=== PATIENT | male | born 1955 | race African-American/Black ===

== ENCOUNTER 2017-02-16 04:00 | Emergency (ER) | payer MEDICARE, BC ==
[~2017-02-16 04:00] MED LIST: AMLO10TA80 PO; CALC667C4 PO; CINA30 PO; CLON0.1T PO; CLOP75TA33 PO; COMADIN; DIPH25CA83 PO; LABE100T PO; LISI2.5T47 PO; MINO2.5T19 PO
== END 2017-02-16 09:30 | disposition left against medical advice (07) ==
LOC: ER 04:00
DX: K92.1 Melena (principal); Z53.21 Procedure and treatment not carried out due to patient leaving prior to being seen by health care provider

== ENCOUNTER 2017-04-13 12:55 | Emergency (ER) | payer MEDICARE, BC ==
[~2017-04-13] VITALS: Ht 182.9 cm; Wt 71.0 kg
[2017-04-13 14:07] LABS: EOSINOPHILS % 3.2 % (0.0-5.0); HEMATOCRIT. 29.9 % (42.0-52.0); HEMOGLOBIN. 9.8 g/dL (14.0-18.0); LYMPHOCYTES % 12.7 % (20.0-50.0); MEAN CORPUSCULAR HEMOGLOBIN 27.6 pg (28.0-32.0); MEAN CORPUSCULAR VOLUME 83.9 fL (80.0-94.0); MEAN PLATELET VOLUME 7.4 fl (7.4-10.4); MONOCYTES % 8.6 % (2.0-8.0); NEUTROPHILS % 73.5 % (40.0-76.0); PLATELET 189 x1000/uL (130-400); RED BLOOD CELL COUNT 3.56 mill/uL (4.7-6.1)
[2017-04-13 14:14] LABS: INR 1.2; PROTHROMBIN TIME 12.1 sec (9.4-11.6)
[2017-04-13 14:24] LABS: CARBON DIOXIDE 35 mEq/L (21-32); CHLORIDE 95 mEq/L (98-107)
[2017-04-13 14:35] VITALS: BP 160/85
== END 2017-04-13 14:48 | disposition home or self-care (01) ==
LOC: ER 12:55
DX: T82.838A Hemorrhage due to vascular prosthetic devices, implants and grafts, initial encounter (principal); I12.0 Hypertensive chronic kidney disease with stage 5 chronic kidney disease or end stage renal disease; N18.6 End stage renal disease; Z99.2 Dependence on renal dialysis
CPT/HCPCS: 36415; 80053; 85025; 85610; 99284

== ENCOUNTER 2018-04-18 21:56 | Inpatient (IN) | payer MEDICARE, BC ==
[~2018-04-18] VITALS: Ht 180.3 cm; Wt 70.3 kg
[~2018-04-18 21:56] MED LIST changes: -LABE100T PO; +LABE100T5 PO
[2018-04-19] MEDS ORDERED: ONDANSETRON HCL 4MG/2ML INJ IV STA (01:38)
[2018-04-19] MEDS ORDERED: MORPHINE SULFATE 10 MG/ML CPJ IV ONE (01:45)
[2018-04-19 02:41] LABS: CHLORIDE 99 mEq/L (98-107)
[2018-04-19 02:48] LABS: ETHANOL BLOOD < 10 mg/dL
[2018-04-19 03:05] LABS: BASOPHILS % 0.3 % (0.0-2.0); EOSINOPHILS % 2.5 % (0.0-5.0); LYMPHOCYTES % 7.3 % (20.0-50.0); MEAN CORPUSCULAR HEMOGLOBIN 25.7 pg (28.0-32.0); MEAN CORPUSCULAR VOLUME 80.3 fL (80.0-94.0); MEAN PLATELET VOLUME 7.9 fl (7.4-10.4); MONOCYTES % 8.8 % (2.0-8.0); NEUTROPHILS % 81.1 % (40.0-76.0); PLATELET 298 x1000/uL (130-400); RED BLOOD CELL COUNT 3.49 mill/uL (4.7-6.1); RED CELL DISTRIBUTION WIDTH 16.6 % (11.6-14.6)
[2018-04-19] MEDS ORDERED: LIDOCAINE HCL 1% 20ML VIAL (Pyxis) INJ ONE (08:24)
[2018-04-19] MEDS ORDERED: SODIUM BICARBONATE 4% (2.4MEQ) 5ML VIAL IV ONE (08:25)
[2018-04-19 08:52] VITALS: BP 124/67
[2018-04-19 08:53] VITALS: BP 124/67
[2018-04-19 12:00] VITALS: BP 117/64
[2018-04-19] MEDS ORDERED: IPRATROPIUM/ALBUTEROL 0.5-3(2.5)MG/3ML NEB INH PRN (12:30)
[2018-04-19] MEDS ORDERED: ACETAMINOPHEN 650MG SUPP PR PRN (12:30)
[2018-04-19] MEDS ORDERED: ONDANSETRON HCL 4MG/2ML INJ IV PRN (12:30)
[2018-04-19] MEDS ORDERED: LORAZEPAM 2MG/ML CPJ IV PRN (12:30)
[2018-04-19] MEDS ORDERED: DIPHENHYDRAMINE 50MG/ML VIAL IV PRN (12:30)
[2018-04-19] MEDS: AMLODIPINE 10MG TABLET PO SCH (15:14)
[2018-04-19] MEDS ORDERED: MINOXIDIL PO SCH (15:15)
[2018-04-19] MEDS: MINOXIDIL 2.5MG TABLET PO SCH (15:46)
[2018-04-19 16:00] VITALS: BP 106/59
[2018-04-19] MEDS ORDERED: CALCIUM ACETATE PO SCH (17:00)
[2018-04-19] MEDS: CALCIUM ACETATE 667MG CAPSULE PO SCH (17:28)
[2018-04-19] MEDS: CINACALCET HCL 60MG TABLET PO SCH (17:28)
[2018-04-19 20:05] VITALS: BP 119/64
[2018-04-19 20:41] LABS: HEMOGLOBIN 10.4 g/dL (14.0-18.0); MEAN CORPUSCULAR HEMOGLOBIN 25.3 pg (28.0-32.0); MEAN CORPUSCULAR VOLUME 80.6 fL (80.0-94.0); PLATELET 310 x1000/uL (130-400); RED CELL DISTRIBUTION WIDTH 16.8 % (11.6-14.6)
[2018-04-19 20:48] LABS: CHLORIDE 101 mEq/L (98-107)
[2018-04-19 20:55] LABS: TOTAL IRON BINDING CAPACITY 215 ug/dL (250-450)
[2018-04-19 21:16] LABS: HEPATITIS B SURFACE ANTIGEN NEGATIVE
[2018-04-19 22:27] LABS: INR 1.1; PROTHROMBIN TIME 11.4 sec (9.1-11.1)
[2018-04-20] VITALS: BP 125/71
[2018-04-20] MEDS ORDERED: DEXT 5%/0.45% NACL 1000ML 1,000 ML IV SCH
[2018-04-20 04:00] VITALS: BP 127/79
[2018-04-20 06:59] LABS: BASOPHILS % 0.7 % (0.0-2.0); EOSINOPHILS % 4.5 % (0.0-5.0); HEMATOCRIT. 27.8 % (42.0-52.0); HEMOGLOBIN. 9.1 g/dL (14.0-18.0); LYMPHOCYTES % 9.5 % (20.0-50.0); MEAN CORPUSCULAR HEMOGLOBIN 26.1 pg (28.0-32.0); MEAN CORPUSCULAR VOLUME 79.5 fL (80.0-94.0); MEAN PLATELET VOLUME 7.9 fl (7.4-10.4); MONOCYTES % 11.4 % (2.0-8.0); NEUTROPHILS % 73.9 % (40.0-76.0); PLATELET 274 x1000/uL (130-400); RED CELL DISTRIBUTION WIDTH 16.8 % (11.6-14.6)
[2018-04-20 07:08] LABS: CHLORIDE 101 mEq/L (98-107)
[2018-04-20] MEDS: CINACALCET HCL 60MG TABLET PO SCH (07:40)
[2018-04-20] MEDS: CALCIUM ACETATE 667MG CAPSULE PO SCH (07:40)
[2018-04-20 07:42] LABS: HDL CHOLESTEROL 58 mg/dL (40-59)
[2018-04-20 07:43] LABS: LDL CHOLESTEROL 70 mg/dL (5-100); PHOSPHORUS 4.2 mg/dL (2.5-4.9)
[2018-04-20 08:00] VITALS: BP 124/71
[2018-04-20] MEDS ORDERED: SODIUM BICARBONATE 4% (2.4MEQ) 5ML VIAL IV ONE (08:38)
[2018-04-20] MEDS ORDERED: LIDOCAINE HCL 1% 20ML VIAL (Pyxis) INJ ONE (08:39)
[2018-04-20] MEDS: MINOXIDIL 2.5MG TABLET PO SCH (10:29)
[2018-04-20] MEDS: AMLODIPINE 10MG TABLET PO SCH (10:29)
[2018-04-20 12:00] VITALS: BP 122/70
[2018-04-20 13:55] VITALS: BP 20/120
[2018-04-20 16:00] VITALS: BP 124/70
[2018-04-20] MEDS ORDERED: CEFTRIAXONE 1 G PREMIX 50 ML IV NR (16:00)
[2018-04-20 17:39] LABS: HEPATITIS A AB IGM EQUIVOCAL (NEGATIVE)
[2018-04-20] MEDS ORDERED: FERROUS SULFATE 325MG TABLET PO SCH (17:40)
== END 2018-04-20 16:45 | disposition home or self-care (01) | DRG 441 ==
LOC: ER 21:56 → 8WST 04-19 05:23 → EDBEDREQ 04-19 05:25 → EDBEDREQTM 04-19 05:25 → ENRESERV 04-19 07:34
PROVIDERS: ADMIT Ophthalmology; ATTEND Ophthalmology
PROC: 5A1D70Z Performance of Urinary Filtration, Intermittent, Less than 6 Hours Per Day (ICD-10-PCS; 2018-04-19)
PROC: 0W9G30Z Drainage of Peritoneal Cavity with Drainage Device, Percutaneous Approach (ICD-10-PCS; principal; 2018-04-20)
DX: K76.9 Liver disease, unspecified (principal); N18.6 End stage renal disease; I50.43 Acute on chronic combined systolic (congestive) and diastolic (congestive) heart failure; R18.8 Other ascites; I13.2 Hypertensive heart and chronic kidney disease with heart failure and with stage 5 chronic kidney disease, or end stage renal disease; N25.81 Secondary hyperparathyroidism of renal origin; Q61.3 Polycystic kidney, unspecified; E03.9 Hypothyroidism, unspecified; E83.39 Other disorders of phosphorus metabolism; F12.90 Cannabis use, unspecified, uncomplicated; F17.200 Nicotine dependence, unspecified, uncomplicated; I73.9 Peripheral vascular disease, unspecified; I87.2 Venous insufficiency (chronic) (peripheral); R73.9 Hyperglycemia, unspecified; D50.9 Iron deficiency anemia, unspecified; H35.039 Hypertensive retinopathy, unspecified eye; K59.00 Constipation, unspecified; L60.0 Ingrowing nail; N28.89 Other specified disorders of kidney and ureter; Z87.01 Personal history of pneumonia (recurrent); Z87.11 Personal history of peptic ulcer disease; Z99.2 Dependence on renal dialysis; Z79.899 Other long term (current) drug therapy
CPT/HCPCS: 36415; 49083; 71045; 74176; 76705; 80061; 82040; 82140; 83036; 83540; 83550; 83605; 83615; 83735; 83986; 84100; 84315; 84439; 84443; 84484; 85027; 86705; 86709; 86803; 87340; 93005; 93306; 93970; 96374; 96375; 99285; G0482; J0696; J1200; J2270; J2405; J3490

== ENCOUNTER 2018-05-03 14:19 | Inpatient (IN) | payer MEDICARE, BC ==
[~2018-05-03] VITALS: Ht 182.9 cm; Wt 60.8 kg
[~2018-05-03 14:19] MED LIST changes: -CLON0.1T PO; -COMADIN; -LABE100T5 PO
[2018-05-03] MEDS ORDERED: SODIUM CHLORIDE 0.9% 500 ML IV ONE (16:15)
[2018-05-03 17:00] LABS: BASOPHILS % 1.7 % (0.0-2.0); EOSINOPHILS % 2.5 % (0.0-5.0); HEMATOCRIT. 30.1 % (42.0-52.0); HEMOGLOBIN. 9.6 g/dL (14.0-18.0); LYMPHOCYTES % 9.2 % (20.0-50.0); MEAN CORPUSCULAR HEMOGLOBIN 25.3 pg (28.0-32.0); MEAN CORPUSCULAR VOLUME 79.5 fL (80.0-94.0); MEAN PLATELET VOLUME 7.8 fl (7.4-10.4); MONOCYTES % 8.6 % (2.0-8.0); PLATELET 240 x1000/uL (130-400); RED BLOOD CELL COUNT 3.78 mill/uL (4.7-6.1); RED CELL DISTRIBUTION WIDTH 18.9 % (11.6-14.6)
[2018-05-03 17:03] LABS: CHLORIDE 97 mEq/L (98-107)
[2018-05-03 17:12] LABS: INR 1.2; PARTIAL THROMBOPLASTIN TIME 30.8 sec (23.4-31.0); PROTHROMBIN TIME 12.2 sec (9.1-11.1)
[2018-05-03] MEDS ORDERED: ALBUMIN HUMAN 12.5G/250ML (5%) IV ONE (18:00)
[2018-05-03] MEDS ORDERED: ONDANSETRON HCL 4MG/2ML INJ IV PRN (19:30)
[2018-05-03] MEDS ORDERED: ACETAMINOPHEN 325MG TABLET PO PRN (19:30)
[2018-05-03] MEDS ORDERED: MAGNESIUM/ALUMINUM HYDROXIDE/SIMETHICONE 30ML UDC PO PRN (19:30)
[2018-05-03] MEDS ORDERED: IPRATROPIUM/ALBUTEROL 0.5-3(2.5)MG/3ML NEB INH PRN (19:30)
[2018-05-03] MEDS ORDERED: LORAZEPAM 1MG TABLET PO PRN (19:30)
[2018-05-03] MEDS ORDERED: CLONIDINE 0.1MG TABLET PO PRN (19:30)
[2018-05-03] MEDS ORDERED: TRAMADOL 50MG TABLET PO PRN (19:30)
[2018-05-03] MEDS ORDERED: DOCUSATE SODIUM 100MG CAPSULE PO PRN (19:30)
[2018-05-03] MEDS ORDERED: GUAIFENESIN 200MG/10ML SUGAR FREE UDC PO PRN (19:30)
[2018-05-03] MEDS ORDERED: NITROGLYCERIN 0.4MG TABLET SL SL PRN (19:30)
[2018-05-03] MEDS ORDERED: DIPHENHYDRAMINE 50MG/ML VIAL IV PRN (19:30)
[2018-05-03] MEDS: ENOXAPARIN 30MG/0.3ML SYR SUBCUT SCH (22:00)
[2018-05-03] MEDS ORDERED: CEFTRIAXONE 1 G PREMIX 50 ML IV SCH (22:00)
[2018-05-04] VITALS (7 sets, daily range): BP systolic 129–149; BP diastolic 72–84
[2018-05-04] MEDS: ZOLPIDEM TARTRATE 5MG TABLET PO PRN ×2 (03:10→22:07)
[2018-05-04] MEDS: CLOPIDOGREL 75MG TABLET PO SCH (09:00)
[2018-05-04] MEDS: FOLIC ACID/VITAMIN B COMP W-C TABLET PO SCH (09:16)
[2018-05-04] MEDS: SEVELAMER CARBONATE 800 MG TABLET PO SCH ×3 (09:16→17:37)
[2018-05-04] MEDS: FAMOTIDINE 20MG TABLET PO SCH (09:16)
[2018-05-04] MEDS ORDERED: LIDOCAINE HCL 1% 20ML VIAL (Pyxis) INJ ONE (13:07)
[2018-05-04] MEDS ORDERED: SODIUM BICARBONATE 4% (2.4MEQ) 5ML VIAL IV ONE (13:07)
[2018-05-04] MEDS ORDERED: DIPHENHYDRAMINE 25MG CAPSULE PO PRN (15:15)
[2018-05-04] MEDS: ENOXAPARIN 30MG/0.3ML SYR SUBCUT SCH (22:00)
[2018-05-04] MEDS: CLONIDINE 0.3MG TABLET PO SCH (22:05)
[2018-05-04] MEDS: LABETALOL HCL 200MG TABLET PO SCH (22:05)
[2018-05-04] MEDS: CEFTRIAXONE 1 G PREMIX 50 ML IV SCH (22:49)
[2018-05-05] VITALS (7 sets, daily range): BP systolic 115–158; BP diastolic 71–89
[2018-05-05 08:09] LABS: BASOPHILS % 1.9 % (0.0-2.0); EOSINOPHILS % 3.3 % (0.0-5.0); HEMATOCRIT. 31.5 % (42.0-52.0); HEMOGLOBIN. 10.1 g/dL (14.0-18.0); LYMPHOCYTES % 14.7 % (20.0-50.0); MEAN CORPUSCULAR HEMOGLOBIN 25.3 pg (28.0-32.0); MEAN CORPUSCULAR VOLUME 78.6 fL (80.0-94.0); MEAN PLATELET VOLUME 8.1 fl (7.4-10.4); MONOCYTES % 7.7 % (2.0-8.0); NEUTROPHILS % 72.4 % (40.0-76.0); PLATELET 234 x1000/uL (130-400); RED BLOOD CELL COUNT 4.01 mill/uL (4.7-6.1); RED CELL DISTRIBUTION WIDTH 18.6 % (11.6-14.6)
[2018-05-05] MEDS: LABETALOL HCL 200MG TABLET PO SCH ×2 (08:42→23:10)
[2018-05-05] MEDS: SEVELAMER CARBONATE 800 MG TABLET PO SCH ×3 (08:42→17:29)
[2018-05-05] MEDS: MINOXIDIL 2.5MG TABLET PO SCH (08:42)
[2018-05-05] MEDS: CLONIDINE 0.3MG TABLET PO SCH ×2 (08:42→23:10)
[2018-05-05] MEDS: FOLIC ACID/VITAMIN B COMP W-C TABLET PO SCH (08:43)
[2018-05-05] MEDS: LISINOPRIL 40MG TABLET PO SCH (08:43)
[2018-05-05] MEDS: CINACALCET HCL 30MG TABLET PO SCH (08:43)
[2018-05-05] MEDS: FAMOTIDINE 20MG TABLET PO SCH (08:43)
[2018-05-05] MEDS: CLOPIDOGREL 75MG TABLET PO SCH (08:43)
[2018-05-05] MEDS ORDERED: CLOPIDOGREL 75MG TABLET PO SCH (09:00)
[2018-05-05 09:02] LABS: PHOSPHORUS 5.9 mg/dL (2.5-4.9)
[2018-05-05] MEDS: CEFTRIAXONE 1 G PREMIX 50 ML IV SCH (23:02)
[2018-05-05] MEDS: ZOLPIDEM TARTRATE 5MG TABLET PO PRN (23:09)
[2018-05-05] MEDS: ENOXAPARIN 30MG/0.3ML SYR SUBCUT SCH (23:10)
[2018-05-06 04:00] VITALS: BP 128/79
[2018-05-06 07:58] VITALS: BP 140/77
[2018-05-06] MEDS: SEVELAMER CARBONATE 800 MG TABLET PO SCH (08:08)
[2018-05-06] MEDS: CLOPIDOGREL 75MG TABLET PO SCH (08:08)
[2018-05-06] MEDS: FOLIC ACID/VITAMIN B COMP W-C TABLET PO SCH (08:08)
[2018-05-06] MEDS: CINACALCET HCL 30MG TABLET PO SCH (08:08)
[2018-05-06] MEDS: LABETALOL HCL 200MG TABLET PO SCH (08:09)
[2018-05-06] MEDS: LISINOPRIL 40MG TABLET PO SCH (08:09)
[2018-05-06] MEDS: MINOXIDIL 2.5MG TABLET PO SCH (08:09)
[2018-05-06 12:13] VITALS: BP 123/81
[2018-05-06 13:42] VITALS: BP 123/81
== END 2018-05-06 14:30 | disposition home or self-care (01) | DRG 371 ==
LOC: ER 14:19 → 7WST 18:51 → EDBEDREQ 18:57 → SUPCPDRO 19:22 → ENRESERV 20:20 → EDBEDREQ 22:40 → CANRESERV 05-04 00:56 → ENRESERV 05-04 00:56 → CANBEDREQ 05-04 05:43
PROVIDERS: ADMIT Internal Medicine; ATTEND Internal Medicine
PROC: 0W9G3ZZ Drainage of Peritoneal Cavity, Percutaneous Approach (ICD-10-PCS; principal; 2018-05-04)
PROC: 5A1D70Z Performance of Urinary Filtration, Intermittent, Less than 6 Hours Per Day (ICD-10-PCS; 2018-05-04)
DX: K65.2 Spontaneous bacterial peritonitis (principal); E43 Unspecified severe protein-calorie malnutrition; N18.6 End stage renal disease; R18.8 Other ascites; I13.2 Hypertensive heart and chronic kidney disease with heart failure and with stage 5 chronic kidney disease, or end stage renal disease; Z68.1 Body mass index [BMI] 19.9 or less, adult; N25.81 Secondary hyperparathyroidism of renal origin; D63.8 Anemia in other chronic diseases classified elsewhere; E21.3 Hyperparathyroidism, unspecified; F32.9 Major depressive disorder, single episode, unspecified; I95.9 Hypotension, unspecified; E03.9 Hypothyroidism, unspecified; I25.10 Atherosclerotic heart disease of native coronary artery without angina pectoris; I50.9 Heart failure, unspecified; I73.9 Peripheral vascular disease, unspecified; I87.2 Venous insufficiency (chronic) (peripheral); Z83.3 Family history of diabetes mellitus; Z87.01 Personal history of pneumonia (recurrent); Z99.2 Dependence on renal dialysis; Z79.899 Other long term (current) drug therapy; B96.89 Other specified bacterial agents as the cause of diseases classified elsewhere
CPT/HCPCS: 36415; 49083; 80048; 83036; 83605; 83735; 84100; 93970; 97161; 99285; J0696; J1650; J3490; J7040; J7620; P9041